=== PATIENT | male | born 1965 | race Caucasian/White ===

== ENCOUNTER 2017-12-27 08:20 | Emergency (ER) | payer OTHER ==
[~2017-12-27] VITALS: Ht 172.7 cm; Wt 117.9 kg
[2017-12-27 08:26] VITALS: BP 118/58
[2017-12-27] MEDS ORDERED: BACTRIM DS TAB1 EACH PO (08:58)
[2017-12-27] MEDS ORDERED: KEFLEX500 M1 PO (08:58)
== END 2017-12-27 09:09 | disposition home or self-care (01) ==
LOC: ER 08:20
DX: L03.213 Periorbital cellulitis (principal); F17.210 Nicotine dependence, cigarettes, uncomplicated

== ENCOUNTER 2018-10-13 21:38 | Emergency (ER) | payer OTHER ==
[~2018-10-13] VITALS: Ht 172.7 cm; Wt 113.4 kg
[~2018-10-13 21:38] MED LIST: BACTRIM DS TAB1 EACH PO; KEFLEX500 M1 PO
[2018-10-14] MEDS ORDERED: MIRALAX17 GM PO (00:07)
[2018-10-14] MEDS ORDERED: NORCO 5-325 TA1 EACH PO (00:07)
[2018-10-14] MEDS ORDERED: IBUPROFEN 400400 M2 PO (00:07)
[2018-10-14] MEDS ORDERED: KEFLEX500 M1 PO (00:07)
[2018-10-14 00:19] VITALS: BP 103/56
== END 2018-10-14 00:20 | disposition home or self-care (01) ==
LOC: ER 21:38
DX: S68.121A Partial traumatic metacarpophalangeal amputation of left index finger, initial encounter (principal); F17.210 Nicotine dependence, cigarettes, uncomplicated; W23.0XXA Caught, crushed, jammed, or pinched between moving objects, initial encounter; Y93.89 Activity, other specified; Y92.89 Other specified places as the place of occurrence of the external cause; Y99.0 Civilian activity done for income or pay

== ENCOUNTER 2018-10-25 12:07 | Emergency (ER) | payer OTHER ==
[~2018-10-25] VITALS: Ht 172.7 cm; Wt 113.4 kg
[~2018-10-25 12:07] MED LIST changes: +IBUPROFEN 400400 M2 PO; +MIRALAX17 GM PO; +NORCO 5-325 TA1 EACH PO
[2018-10-25] MEDS ORDERED: KEFLEX500 M1 PO ×2 (13:41→13:42)
[2018-10-25 14:33] VITALS: BP 123/71
== END 2018-10-25 13:50 | disposition home or self-care (01) ==
LOC: ER 12:07
DX: Z48.01 Encounter for change or removal of surgical wound dressing (principal); F17.210 Nicotine dependence, cigarettes, uncomplicated

== ENCOUNTER 2019-02-28 10:01 | Emergency (ER) | payer OTHER ==
[~2019-02-28] VITALS: Ht 172.7 cm; Wt 108.9 kg
[2019-02-28 10:28] LABS: ABSOLUTE NEUTROPHILS 5.2 thou/uL (1.4-8.2); BASOPHILS 0.4 % (0.0-2.0); EOSINOPHILS 1.6 % (0.0-3.0); HEMATOCRIT 47.6 % (42.0-52.0); LYMPHOCYTES 24.4 % (24.0-44.0); MCH 30.1 pg (26.0-34.0); MCHC 33.5 g/dL (28.0-37.0); MCV 89.8 fL (80.0-100.0); MONOCYTES 5.5 % (1.0-8.0); PLATELET COUNT 182 thou/uL (150-400); POLYS 68.1 % (36.0-66.0); RBC 5.31 mil/uL (4.50-6.00); RDW 14.7 % (10.5-14.5); WBC 7.6 thou/uL (4.0-11.0)
[2019-02-28 10:35] LABS: CALCIUM 9.4 mg/dL (8.5-10.1); CREATININE 1.2 mg/dL (0.7-1.3); POTASSIUM 3.8 mmol/L (3.5-5.1)
[2019-02-28 10:41] LABS: ALBUMIN 3.7 g/dL (3.4-5.0); TOTAL BILIRUBIN 0.2 mg/dL (<0.1-1.0); TOTAL PROTEIN 7.1 g/dL (6.4-8.2)
[2019-02-28 11:51] LABS: URINE BILIRUBIN NEGATIVE (Negative); URINE BLOOD TRACE (Negative); URINE CLARITY CLEAR; URINE COLOR YELLOW; URINE GLUCOSE-RANDOM* NEGATIVE (Negative); URINE KETONES NEGATIVE (Negative); URINE LEUKOCYTES NEGATIVE (Negative); URINE NITRITE NEGATIVE (Negative); URINE PROTEIN (DIPSTICK) NEGATIVE (Negative); URINE SPECIFIC GRAVITY <= 1.005 (1.005-1.035); URINE UROBILINOGEN 0.2 E.U./dl (0.2-1.0)
[2019-02-28 13:20] VITALS: BP 102/71
== END 2019-02-28 13:10 | disposition home or self-care (01) ==
LOC: ER 10:01
PROVIDERS: Emergency Medicine
DX: K52.9 Noninfective gastroenteritis and colitis, unspecified (principal); F17.210 Nicotine dependence, cigarettes, uncomplicated